=== PATIENT | male | born 1955 | race Caucasian/White ===

== ENCOUNTER → 2020-10-03 | Outpatient (CLI) | payer OTHER ==
--- NOTE | 2020-10-03 12:36 | Diagnostic Imaging Report ---
EXAMINATION: CT Abdomen Pelvis without contrast. TECHNIQUE: Multiple contiguous axial images were obtained through the abdomen and pelvis without the use of intravenous contrast. All CT scans use one or more of the following dose optimizing techniques: automated exposure control, MA and/or KvP adjustment based on a patient size and exam type, or iterative reconstruction. HISTORY: Microhematuria. COMPARISON: None available. FINDINGS: Lung bases: Emphysematous changes of the right middle lobe. Linear atelectasis or scarring within the lung bases. Solid organs: The liver is normal. The gallbladder is normal. There is no biliary ductal dilation. Pancreas is normal. Spleen is normal. Adrenal glands are normal. There are multiple bilateral renal cysts. There is a hyperdense left renal cyst with layering calcification seen within the left kidney measuring 1.7 cm. No visualized renal calculus or hydronephrosis. Bowel: The stomach and small bowel are normal without obstruction. There is wall thickening of the transverse and ascending colon. The appendix is normal. Peritoneum: There is no intraperitoneal free fluid or free air. No suspicious lymphadenopathy. Vasculature: Atherosclerosis of the aorta with multifocal areas of aneurysmal dilatation within the infrarenal abdominal aorta measuring up to 3.6 cm. 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 Musculoskeletal: Degenerative changes of the spine without suspicious osseous lesion or compression fracture. Pelvis: The prostate gland is normal. There is diffuse bladder wall thickening. IMPRESSION: 1. No renal calculus or hydronephrosis. 2. Multiple bilateral renal cysts, one of which is mildly hyperdense with layering or peripheral calcification. This gives a hemorrhagic or proteinaceous cyst. Consider further evaluation with dedicated CT or MRI renal mass protocol with IV contrast. 3. Atherosclerosis with aneurysmal dilatation of the infrarenal abdominal aorta and right common iliac artery. 4. Diffuse bladder wall thickening. Recommend correlation with urinalysis. 5. Bowel wall thickening of the ascending and transverse colon. This could represent an infectious or inflammatory colitis. Recommend correlation with history and laboratory values. Dictated by: Dictated on workstation # [id number]
== END ==
LOC: RAD FS 09:30
PROVIDERS: ATTEND Urology
DX: N20.0 Calculus of kidney (principal); I71.4 Abdominal aortic aneurysm, without rupture; I72.3 Aneurysm of iliac artery; N32.89 Other specified disorders of bladder; K63.89 Other specified diseases of intestine
CPT/HCPCS: 74176

== ENCOUNTER → 2020-10-12 | Outpatient (CLI) | payer OTHER ==
[~2020-10-12] MED LIST: CATHETER FLUSH 10 ML SYR IV PRN; HOLD METFORMIN - RECEIVED CONTRAST 20 ML VIAL IV SCH; IOHEXOL 350 MG/ML 100 ML (OMNIPAQUE 350) VIAL IV ONE; NS 100 ML (IVPB) BAG IV ONE
--- NOTE | 2020-10-12 10:15 | Diagnostic Imaging Report ---
PROCEDURE: CT abdomen with contrast only. TECHNIQUE: Multiple contiguous axial images were obtained through the abdomen after the administration of intravenous contrast. Auto Exposure Controls were utilized during the CT exam to meet ALARA standards for radiation dose reduction. INDICATION: Renal masses. COMPARISON: Correlation is made with a noncontrast CT from 10/03/2020. FINDINGS: The lung bases demonstrate some scarring. No discrete liver mass is detected. The gallbladder is unremarkable. There is no biliary ductal dilatation. The pancreas and spleen are unremarkable. No adrenal mass is detected. The right kidney is unremarkable. Multiple low-attenuation lesions within the left kidney are again noted, suggestive of cysts. The largest is in the lower pole measuring 5 cm. The low-attenuation lesion with hyperdensity posteriorly and peripherally is again noted and measures 2.1 cm in size. This cannot be assessed for enhancement due to absence of precontrast imaging on today's exam. A 2.3 cm low-attenuation lesion in the posterior aspect of the lower pole of the left kidney is also noted. This has a tiny hyperdensity along the periphery as well. There is an infrarenal abdominal aortic aneurysm measuring 3.5 cm in diameter. There is a moderate amount of mural thrombus. The aneurysm extends to the bifurcation. There is aneurysmal dilatation of the right common iliac artery measuring 2.6 cm in diameter. This is only partially included on today's exam. The small and large bowel loops are of normal caliber. There is no obstruction. No free fluid or fluid collection is identified. There is no free air. IMPRESSION: 1. Infrarenal abdominal aortic aneurysm. 2. Multiple low-attenuation lesions within the left kidney, consistent with cysts. There are two lesions that do demonstrate peripheral hyperdensity which may represent a small amount of hemorrhage or calcification. Assessment for enhancement cannot be performed due to absence of precontrast imaging on today's exam. Continued followup with ultrasound and/or CT is recommended to show continued stability. Dictated by: Dictated on workstation # [id number]
== END ==
LOC: RAD FS 08:36
PROVIDERS: ATTEND Urology
DX: N28.1 Cyst of kidney, acquired (principal); I71.4 Abdominal aortic aneurysm, without rupture
CPT/HCPCS: 74160

== ENCOUNTER → 2021-04-18 | Outpatient (CLI) | payer MEDICARE, OTHER ==
--- NOTE | 2021-04-18 10:27 | Diagnostic Imaging Report ---
PROCEDURE: CT abdomen with and without contrast. TECHNIQUE: Multiple contiguous axial CT images of the abdomen were obtained prior to and after intravenous administration of iodinated contrast. Auto Exposure Controls were utilized during the CT exam to meet ALARA standards for radiation dose reduction. Date: April 18, 2021. Indication: 66-year-old male, follow-up renal masses. Comparison: CT abdomen with intravenous contrast October 12, 2020. CT abdomen pelvis without contrast October 03, 2020. Findings: There are mild linear opacities in the right lower lobe, left lower lobe, and lingula consistent with mild scarring and/or atelectasis. The heart is not enlarged. There is no pericardial effusion. The liver is normal in size and contour. There is no identified focal liver lesion. The main, right, left portal veins are patent. The gallbladder is unremarkable. There is no biliary ductal dilation. The main pancreatic duct is not abnormally dilated. Unremarkable appearance of the pancreatic parenchyma. The spleen is normal in size. The adrenal glands are unremarkable. There is a low-attenuation left renal lesion on axial image 39 measuring 5.1 cm in size with internal attenuation compatible with a benign cyst. There is a nonenhancing exophytic left renal lesion on axial image 40 compatible with a benign cyst which measures 2.0 cm in size. There is an additional nonenhancing left renal lesion consistent with a benign cyst on axial image 37 measuring 2.2 cm in size. There is a 4 mm low-attenuation left renal lesion on axial postcontrast image 43 too small to characterize. There is also a 6 mm low-attenuation left renal lesion on axial image 41 which is too small to characterize. There is a 7 mm low-attenuation left renal lesion on axial image 35 which is consistent with a benign cyst with internal attenuation value of 2 Hounsfield units. There is a 6 mm right renal lesion on axial image 36 which is too small to characterize. The urinary collecting systems are not distended. There is no identified renal stone. There is fatty wall thickening of the transverse colon and left colon. There is no identified nonfatty wall thickening of bowel in the included [id number]. There are atherosclerotic calcifications. There is an infrarenal abdominal aortic aneurysm measuring up to 3.6 x 3.6 cm in diameter. This previously measured 3.4 x 3.3 cm in axial dimension on October 03, 2020. There is aneurysmal dilation of the right common iliac artery up to 2.4 cm in diameter. There is no acute bony abnormality. Impression: 1. 7 mm in larger left renal cysts are consistent with benign cysts and do not require further follow-up. Additional subcentimeter renal lesions too small to characterize. 2. Infrarenal abdominal aortic aneurysm measuring 3.6 x 3.6 cm in size which is mildly increased in size since October 03, 2020. This previously measured 3.4 x 3.3 cm in diameter at this time. Dictated by: Dictated on workstation # [id number]
== END ==
LOC: RAD FS 08:24
PROVIDERS: ATTEND Urology
DX: N28.1 Cyst of kidney, acquired (principal); I71.4 Abdominal aortic aneurysm, without rupture
CPT/HCPCS: 74170

== ENCOUNTER → 2023-05-28 | Outpatient (CLI) | payer MEDICARE, OTHER | LOC: LAB 13:42 | PROVIDERS: ATTEND Specialist | DX: Z12.5 Encounter for screening for malignant neoplasm of prostate (principal); Z85.51 Personal history of malignant neoplasm of bladder | CPT/HCPCS: 36415; 84153 ==